=== PATIENT | female | born 1955 | race African-American/Black ===

== ENCOUNTER 2019-12-20 16:59 | Emergency (ER) | payer OTHER ==
[~2019-12-20] VITALS: Ht 152.4 cm; Wt 52.2 kg
[2019-12-20 17:12] VITALS: BP 119/73
--- NOTE | 2019-12-20 17:20 | NUR ---
PT AMBULATED TO BED 5, STEADY GAIT
--- NOTE | 2019-12-20 17:25 | NUR ---
EKG AT BEDSIDE.
--- NOTE | 2019-12-20 17:28 | NUR ---
PT PLACED ON 3 LEAD ECG AND PULSE OX.
--- NOTE | 2019-12-20 17:36 | NUR ---
64 Y/F PRESENTS TO ED WITH 7/10 STERNAL ACHING PAIN THAT RADIATEST TO L ARM. PT DENIES SOB, NAUSEA. HX- HYPERCHOLESTEROLEMIA, HYSTERCTOMY AND STENT PLACEMENT NKDA
[2019-12-20] MEDS ORDERED: NITROGLYCERIN 0.4 MG TAB SL ONE (18:00)
--- NOTE | 2019-12-20 18:08 | NUR ---
PT AMBULATED TO BATHROOM STEADY GAIT.
--- NOTE | 2019-12-20 18:20 | NUR ---
LAB AND XRAY AT BEDSIDE.
[2019-12-20 18:56] LABS: BASOPHILS # (AUTO) 0.1 K/uL (0.00-0.22); BASOPHILS % (AUTO) 1.2 % (0.0-2.0); EOSINOPHILS # (AUTO) 0.1 K/uL (0-0.4); EOSINOPHILS % (AUTO) 1.6 % (0.0-4.0); HEMATOCRIT 37.2 % (36-48); HEMOGLOBIN 12.8 g/dL (12.0-16.0); LYMPHOCYTES % (AUTO) 35.6 % (20.5-51.1); MEAN CORPUSCULAR HEMOGLOBIN 32 pg (27-31); MEAN CORPUSCULAR HGB CONC 34 g/dL (33-37); MEAN CORPUSCULAR VOLUME 93.5 fL (80-94); MONOCYTES # (AUTO) 0.3 K/uL (0.8-1.0); MONOCYTES % (AUTO) 6.1 % (1.7-9.3); NEUTROPHILS # (AUTO) 3.1 K/uL (1.8-7.7); NEUTROPHILS % (AUTO) 55.5 % (42.2-75.2); PLATELET COUNT (AUTO) 256 K/uL (140-450); RED BLOOD CELL COUNT(AUTO) 3.98 MIL/uL (4.20-5.40); RED CELL DISTRIBUTION WIDTH 13.2 % (11.6-13.7); WHITE BLOOD COUNT (AUTO) 5.6 K/uL (4.8-10.8)
[2019-12-20 19:00] LABS: ANION GAP 11.9 (8-16); CARBON DIOXIDE 28.9 mmol/L (21-32); CREATININE 0.9 mg/dL (0.6-1.3); POTASSIUM 3.8 mmol/L (3.5-5.1)
--- NOTE | 2019-12-20 19:06 | NUR ---
REPORT RECEIVED FROM EUGENE MONTERO
[2019-12-20 19:07] LABS: ALBUMIN 3.9 g/dL (3.4-5.0); TOTAL BILIRUBIN 0.3 mg/dL (0.0-1.0)
--- NOTE | 2019-12-20 19:27 | NUR ---
REPORT GIVEN TO VARSHA KNIGHT FOR CONTINUITY OF CARE
[2019-12-20 19:55] VITALS: BP 119/73
--- NOTE | 2019-12-20 19:56 | NUR ---
Patient discharged with v/s stable. Written and verbal after care instructions given and explained. Patient verbalized understanding. Ambulatory with steady gait. All questions addressed prior to discharge. Advised to follow up with PMD.
== END 2019-12-20 19:56 | disposition home or self-care (01) ==
LOC: MED 16:59
DX: R07.89 Other chest pain (principal); Z90.710 Acquired absence of both cervix and uterus; Z98.890 Other specified postprocedural states
CPT/HCPCS: 36415; 71045; 80053; 83880; 84484; 85025; 93005; 99285; Q0092

== ENCOUNTER 2024-08-06 01:40 | Emergency (ER) | payer OTHER ==
[~2024-08-06] VITALS: Ht 152.4 cm; Wt 55.6 kg
[2024-08-06 01:46] VITALS: BP 115/62; PULSE 87; RESP 14; TEMP 98.3; O2SAT 98
[2024-08-06] MEDS: BENZONATATE 100 MG CAPLF PO PRN (03:04)
[2024-08-06] MEDS: guaiFENesin 20 MG/ML UDC PO ONE (03:08)
[2024-08-06] MEDS ORDERED: BENZ-379 PO (03:42)
[2024-08-06] MEDS ORDERED: AZIT250T4 PO (03:42)
== END 2024-08-06 03:46 | disposition home or self-care (01) ==
LOC: MED 01:40
DX: J18.9 Pneumonia, unspecified organism (principal); R09.82 Postnasal drip; Z79.899 Other long term (current) drug therapy
CPT/HCPCS: 71045; 99283